=== PATIENT | female | born 1985 | race Caucasian/White ===

== ENCOUNTER 2024-03-02 05:49 | Inpatient (IN) ==
[2024-03-02] MEDS: 0.9 % SODIUM CHLORIDE 1,000 ML IV ONE ×2 (06:17→15:47)
[2024-03-02] MEDS: ONDANSETRON 4 MG/2 ML VIAL IV ONE ×3 (06:17→14:45)
[2024-03-02] MEDS: fentaNYL 100 MCG/2 ML VIAL IV ONE (06:42)
[2024-03-02 06:50] LABS: HCG Titer, Quantitative 11.8 mIU/mL
[2024-03-02 07:17] LABS: ALT/SGPT 964 U/L (<40); AST/SGOT 686 U/L (<32); Albumin 4.3 gm/dL (3.2-5.2); Albumin/Globulin Ratio 1.3 (1.0-2.3); Alkaline Phosphatase 283 U/L (39-117); Bilirubin,Total 2.4 mg/dL (0.1-1.0); Blood Urea Nitrogen 9 mg/dL (6-20); Carbon Dioxide 21 mmol/L (22-30); Chloride 100 mmol/L (96-108); Globulin 3.4 gm/dL (2.2-3.7); Glomerular Filtration Rate 111; Glucose 106 mg/dL (70-105); Potassium 3.9 mmol/L (3.3-5.1); Sodium 137 mmol/L (133-145)
[2024-03-02 07:48] LABS: Basophils # (Auto) 0.06 K/mcL (0.00-0.30); Basophils % (Auto) 0.6 % (0.0-2.0); Eosinophils # (Auto) 0.41 K/mcL (0.00-0.70); Hematocrit 45.7 % (34.1-44.9); Hemoglobin 14.7 g/dL (11.2-15.7); Lymphocytes % (Auto) 21.5 % (15.5-49.0); Mean Cell Volume 76.2 fL (80.0-100.0); Mean Corpuscular HGB Conc 32.2 g/dL (31.0-36.0); Monocytes # (Auto) 1.09 K/mcL (0.10-0.90); Monocytes % (Auto) 10.6 % (1.0-12.0); Neutrophils % (Auto) 62.9 % (38.0-78.0); Platelet Count 330 K/mcL (140-440); WBC 10.2 K/mcL (4.5-11.0)
[2024-03-02] MEDS: HYDROmorphone 0.5 MG/0.5 ML SYRINGE IV ONE ×3 (09:01→14:45)
[2024-03-02 12:10] LABS: Appearance,Urine Clear (Clear); Bilirubin,Urine Large mg/dL (Negative); Color,Urine Amber; Glucose,Urine (UA) Negative (Negative); Ketones,Urine 40 mg/dL (Negative); Leukocyte Esterase,Urine Negative /uL (Negative); Nitrate,Urine Negative (Negative); PH,Urine 5.5 (5.0-9.0); Protein,Urine 30 mg/dL (Negative); Specific Gravity,Urine >= 1.030 (1.000-1.035); Urine Blood Large ery/mcL (Negative); Urine RBC 0 /hpf (0-3); Urine Squamous Epithelial Cell 12 /hpf (0-4); Urine WBC 2 /hpf (0-4); Urobilinogen,Urine Normal
[2024-03-02] MEDS: HYDROmorphone 1 MG/ML SYRINGE IV PRN (16:47)
[2024-03-02] MEDS ORDERED: POTASSIUM CHLORIDE 40 MEQ in DEXTROSE 5% IN WATER 500 ML IV PRN (19:22)
[2024-03-02] MEDS ORDERED: ACETAMINOPHEN 325 MG TABLET PO PRN (19:22)
[2024-03-02] MEDS ORDERED: POTASSIUM CHLORIDE 20 MEQ TABLET PO PRN ×2 (19:22)
[2024-03-02] MEDS ORDERED: MAGNESIUM SULFATE 2 GM/50 ML BAG IV PRN (19:22)
[2024-03-02] MEDS ORDERED: IPRATROPIUM/ALBUTEROL 3 ML AMPUL.NEB NEB PRN (19:22)
[2024-03-02] MEDS: HYDROmorphone 0.5 MG/0.5 ML SYRINGE IV PRN (19:39)
[2024-03-02] MEDS: 0.9 % SODIUM CHLORIDE 1,000 ML IV SCH (19:40)
[2024-03-02] MEDS: ONDANSETRON 4 MG/2 ML VIAL IV PRN (19:40)
[2024-03-02] MEDS: DOCUSATE SODIUM 100 MG CAPSULE PO SCH (19:44)
[2024-03-02] MEDS: 0.9 % SODIUM CHLORIDE 10 ML SYRINGE IV SCH (19:44)
[2024-03-03] MEDS: METOCLOPRAMIDE 10 MG/2 ML VIAL IV PRN (06:00)
[2024-03-03 06:24] LABS: ALT/SGPT 563 U/L (<40); AST/SGOT 247 U/L (<32); Albumin 3.5 gm/dL (3.2-5.2); Albumin/Globulin Ratio 1.3 (1.0-2.3); Alkaline Phosphatase 220 U/L (39-117); Bilirubin,Direct 0.6 mg/dL (<0.3); Bilirubin,Total 0.8 mg/dL (0.1-1.0); Blood Urea Nitrogen 9 mg/dL (6-20); Calcium 7.8 mg/dL (8.6-10.4); Carbon Dioxide 22 mmol/L (22-30); Chloride 103 mmol/L (96-108); Globulin 2.6 gm/dL (2.2-3.7); Glomerular Filtration Rate 124; Glucose 96 mg/dL (70-105); Lactate Dehydrogenase 154 U/L (135-225); Phosphorous 3.1 mg/dL (2.5-4.5); Potassium 3.7 mmol/L (3.3-5.1); Sodium 136 mmol/L (133-145); Triglycerides 68 mg/dL (<150); Uric Acid 5.9 mg/dL (2.5-8.0)
[2024-03-03] MEDS: OMEPRAZOLE 20 MG CAPSULE PO SCH (07:42)
[2024-03-03] MEDS: ENOXAPARIN 40 MG/0.4 ML SYRINGE SQ SCH (09:46)
[2024-03-03] MEDS: diphenhydrAMINE 50 MG/ML VIAL IV PRN (11:07)
[2024-03-03] MEDS: PROCHLORPERAZINE 10 MG/2 ML VIAL IV PRN (16:37)
[2024-03-03] MEDS: oxyCODONE/APAP 5/325MG TABLET PO PRN (18:49)
[2024-03-03] MEDS: SENNOSIDES 1 TABLET PO PRN (20:32)
[2024-03-04 06:43] LABS: ALT/SGPT 342 U/L (<40); AST/SGOT 93 U/L (<32); Albumin 3.4 gm/dL (3.2-5.2); Albumin/Globulin Ratio 1.3 (1.0-2.3); Alkaline Phosphatase 179 U/L (39-117); Bilirubin,Direct 0.4 mg/dL (<0.3); Bilirubin,Total 0.7 mg/dL (0.1-1.0); Blood Urea Nitrogen 4 mg/dL (6-20); Calcium 7.9 mg/dL (8.6-10.4); Carbon Dioxide 24 mmol/L (22-30); Chloride 102 mmol/L (96-108); Globulin 2.7 gm/dL (2.2-3.7); Glomerular Filtration Rate 124; Glucose 126 mg/dL (70-105); Lactate Dehydrogenase 160 U/L (135-225); Phosphorous 1.2 mg/dL (2.5-4.5); Potassium 3.1 mmol/L (3.3-5.1); Sodium 137 mmol/L (133-145); Triglycerides 86 mg/dL (<150); Uric Acid 4.9 mg/dL (2.5-8.0)
[2024-03-04] MEDS: POLYETHYLENE GLYCOL 3350 17 GM PACKET PO PRN (08:02)
[2024-03-04] MEDS: POTASSIUM CHLORIDE 20 MEQ PACKET PO ONE (09:11)
[2024-03-04 15:43] LABS: Basophils # (Auto) 0.04 K/mcL (0.00-0.30); Basophils % (Auto) 0.2 % (0.0-2.0); Eosinophils # (Auto) 0.61 K/mcL (0.00-0.70); Eosinophils % (Auto) 3.7 % (0.0-7.0); Hemoglobin 12.5 g/dL (11.2-15.7); Lymphocytes # (Auto) 2.24 K/mcL (1.50-4.80); Lymphocytes % (Auto) 13.7 % (15.5-49.0); Mean Cell Volume 79.8 fL (80.0-100.0); Mean Corpuscular HGB Conc 31.3 g/dL (31.0-36.0); Mean Platelet Volume 9.1 fL (8.8-12.5); Monocytes # (Auto) 1.31 K/mcL (0.10-0.90); Neutrophils % (Auto) 73.8 % (38.0-78.0); Platelet Count 263 K/mcL (140-440); RBC 5.01 M/mcL (3.59-5.38); Red Cell Distribution Width 14.4 % (11.5-14.5); WBC 16.3 K/mcL (4.5-11.0)
[2024-03-04] MEDS: POTASSIUM PHOSPHATE 40 MEQ in DEXTROSE 5% IN WATER 500 ML IV ONE (16:05)
[2024-03-04 16:20] LABS: Blood Urea Nitrogen 4 mg/dL (6-20); Calcium 8.3 mg/dL (8.6-10.4); Carbon Dioxide 25 mmol/L (22-30); Chloride 102 mmol/L (96-108); Glomerular Filtration Rate 117; Glucose 93 mg/dL (70-105); Potassium 3.6 mmol/L (3.3-5.1); Sodium 138 mmol/L (133-145)
[2024-03-05 06:17] LABS: Basophils # (Auto) 0.04 K/mcL (0.00-0.30); Basophils % (Auto) 0.2 % (0.0-2.0); Eosinophils # (Auto) 0.76 K/mcL (0.00-0.70); Eosinophils % (Auto) 4.4 % (0.0-7.0); Hematocrit 38.3 % (34.1-44.9); Hemoglobin 12.1 g/dL (11.2-15.7); Lymphocytes # (Auto) 2.15 K/mcL (1.50-4.80); Lymphocytes % (Auto) 12.5 % (15.5-49.0); Mean Cell Volume 79.1 fL (80.0-100.0); Mean Corpuscular HGB Conc 31.6 g/dL (31.0-36.0); Mean Platelet Volume 9.3 fL (8.8-12.5); Monocytes # (Auto) 1.24 K/mcL (0.10-0.90); Monocytes % (Auto) 7.2 % (1.0-12.0); Neutrophils % (Auto) 75.4 % (38.0-78.0); Platelet Count 282 K/mcL (140-440); RBC 4.84 M/mcL (3.59-5.38); Red Cell Distribution Width 14.4 % (11.5-14.5); WBC 17.3 K/mcL (4.5-11.0)
[2024-03-05 06:25] LABS: ALT/SGPT 271 U/L (<40); AST/SGOT 55 U/L (<32); Albumin 3.5 gm/dL (3.2-5.2); Albumin/Globulin Ratio 1.2 (1.0-2.3); Alkaline Phosphatase 163 U/L (39-117); Bilirubin,Direct 0.4 mg/dL (<0.3); Bilirubin,Total 0.6 mg/dL (0.1-1.0); Blood Urea Nitrogen 3 mg/dL (6-20); Calcium 8.3 mg/dL (8.6-10.4); Carbon Dioxide 25 mmol/L (22-30); Chloride 102 mmol/L (96-108); Glomerular Filtration Rate 124; Glucose 105 mg/dL (70-105); Lactate Dehydrogenase 271 U/L (135-225); Phosphorous 2.3 mg/dL (2.5-4.5); Potassium 3.8 mmol/L (3.3-5.1); Sodium 137 mmol/L (133-145); Triglycerides 94 mg/dL (<150); Uric Acid 4.1 mg/dL (2.5-8.0)
[2024-03-05] MEDS: PIPERACILLIN SODIUM/TAZOBACTAM 3.375 GM in DEXTROSE 5% IN WATER 50 ML IV ONE (17:48)
[2024-03-05] MEDS: PIPERACILLIN SODIUM/TAZOBACTAM 3.375 GM in DEXTROSE 5% IN WATER 100 ML IV SCH (22:01)
[2024-03-06 06:17] LABS: Basophils # (Auto) 0.07 K/mcL (0.00-0.30); Basophils % (Auto) 0.4 % (0.0-2.0); Eosinophils # (Auto) 0.81 K/mcL (0.00-0.70); Eosinophils % (Auto) 4.8 % (0.0-7.0); Hematocrit 36.4 % (34.1-44.9); Hemoglobin 11.7 g/dL (11.2-15.7); Lymphocytes # (Auto) 1.99 K/mcL (1.50-4.80); Lymphocytes % (Auto) 11.7 % (15.5-49.0); Mean Cell Volume 78.4 fL (80.0-100.0); Mean Corpuscular HGB Conc 32.1 g/dL (31.0-36.0); Mean Platelet Volume 9.3 fL (8.8-12.5); Monocytes # (Auto) 1.47 K/mcL (0.10-0.90); Monocytes % (Auto) 8.6 % (1.0-12.0); Platelet Count 304 K/mcL (140-440); RBC 4.64 M/mcL (3.59-5.38); Red Cell Distribution Width 14.5 % (11.5-14.5)
[2024-03-06 06:45] LABS: ALT/SGPT 187 U/L (<40); AST/SGOT 27 U/L (<32); Albumin 3.4 gm/dL (3.2-5.2); Albumin/Globulin Ratio 1.1 (1.0-2.3); Alkaline Phosphatase 142 U/L (39-117); Bilirubin,Direct 0.4 mg/dL (<0.3); Bilirubin,Total 0.6 mg/dL (0.1-1.0); Blood Urea Nitrogen 4 mg/dL (6-20); Calcium 8.6 mg/dL (8.6-10.4); Carbon Dioxide 24 mmol/L (22-30); Chloride 103 mmol/L (96-108); Glomerular Filtration Rate 124; Glucose 109 mg/dL (70-105); Lactate Dehydrogenase 155 U/L (135-225); Phosphorous 2.7 mg/dL (2.5-4.5); Potassium 3.6 mmol/L (3.3-5.1); Sodium 138 mmol/L (133-145); Triglycerides 71 mg/dL (<150); Uric Acid 2.7 mg/dL (2.5-8.0)
[2024-03-06] MEDS ORDERED: SUGAMMADEX SODIUM 200 MG/2 ML VIAL IV ONE ×2 (13:24→15:22)
[2024-03-06] MEDS ORDERED: fentaNYL 100 MCG/2 ML VIAL ONE ×3 (13:24→15:23)
[2024-03-06] MEDS ORDERED: PROPOFOL 200 MG/20 ML VIAL IV ONE ×2 (13:24→14:13)
[2024-03-06] MEDS ORDERED: KETAMINE 50 MG/ML ML ONE ×2 (13:25→14:13)
[2024-03-06] MEDS ORDERED: ROCURONIUM 10 MG/ML ML IV ONE ×2 (13:29→14:14)
[2024-03-06] MEDS ORDERED: GLYCOPYRROLATE 0.2 MG/ML VIAL IV ONE (13:29)
[2024-03-06] MEDS ORDERED: DEXAMETHASONE 10 MG/ML VIAL ONE ×2 (13:29→14:14)
[2024-03-06] MEDS ORDERED: ONDANSETRON 4 MG/2 ML VIAL ONE ×2 (13:29→14:14)
[2024-03-06] MEDS ORDERED: LIDOCAINE 2% PF 5 ML VIAL ONE ×3 (13:29→14:14)
[2024-03-06] MEDS ORDERED: MAGNESIUM SULFATE 2 GM/50 ML BAG IV ONE (14:15)
[2024-03-06] MEDS ORDERED: NALOXONE HCL 0.4 MG/ML VIAL IV PRN (15:14)
[2024-03-06] MEDS ORDERED: MEPERIDINE 25 MG/ML VIAL IV PRN (15:14)
[2024-03-06] MEDS ORDERED: LACTATED RINGERS 250 ML IV PRN (15:14)
[2024-03-06] MEDS ORDERED: IPRATROPIUM/ALBUTEROL 3 ML AMPUL.NEB NEB PRN (15:14)
[2024-03-06] MEDS ORDERED: diphenhydrAMINE 50 MG/ML VIAL IV PRN (15:14)
[2024-03-06] MEDS: ACETAMINOPHEN 1,000 MG/100 ML BAG IV ONE (15:44)
[2024-03-06] MEDS: fentaNYL 100 MCG/2 ML VIAL IV PRN (15:53)
[2024-03-06] MEDS: KETOROLAC 30 MG/ML VIAL IV PRN (15:54)
[2024-03-06] MEDS: METHOCARBAMOL 1,000 MG/10 ML VIAL IV PRN (15:55)
[2024-03-06] MEDS: ONDANSETRON 4 MG/2 ML VIAL IV PRN (16:13)
[2024-03-06] MEDS: HYDROmorphone 0.5 MG/0.5 ML SYRINGE IV PRN (16:18)
[2024-03-06] MEDS: PIPERACILLIN SODIUM/TAZOBACTAM 4.5 GM in DEXTROSE 5% IN WATER 100 ML IV SCH (16:42)
[2024-03-06] MEDS: LACTATED RINGERS 1,000 ML IV SCH (16:47)
[2024-03-07 07:10] LABS: ALT/SGPT 163 U/L (<40); AST/SGOT 41 U/L (<32); Albumin 3.6 gm/dL (3.2-5.2); Albumin/Globulin Ratio 1.1 (1.0-2.3); Alkaline Phosphatase 170 U/L (39-117); Bilirubin,Direct 0.3 mg/dL (<0.3); Bilirubin,Total 0.5 mg/dL (0.1-1.0); Blood Urea Nitrogen 6 mg/dL (6-20); Carbon Dioxide 24 mmol/L (22-30); Chloride 100 mmol/L (96-108); Globulin 3.4 gm/dL (2.2-3.7); Glomerular Filtration Rate 134; Glucose 134 mg/dL (70-105); Lactate Dehydrogenase 189 U/L (135-225); Phosphorous 3.2 mg/dL (2.5-4.5); Potassium 4.2 mmol/L (3.3-5.1); Sodium 135 mmol/L (133-145); Triglycerides 81 mg/dL (<150); Uric Acid 2.2 mg/dL (2.5-8.0)
[2024-03-07 07:42] LABS: Basophils # (Auto) 0.01 K/mcL (0.00-0.30); Basophils % (Auto) 0.1 % (0.0-2.0); Eosinophils # (Auto) 0.01 K/mcL (0.00-0.70); Eosinophils % (Auto) 0.1 % (0.0-7.0); Hematocrit 36.7 % (34.1-44.9); Hemoglobin 11.7 g/dL (11.2-15.7); Lymphocytes # (Auto) 1.15 K/mcL (1.50-4.80); Lymphocytes % (Auto) 7.6 % (15.5-49.0); Mean Cell Volume 78.6 fL (80.0-100.0); Mean Corpuscular HGB Conc 31.9 g/dL (31.0-36.0); Mean Platelet Volume 9.4 fL (8.8-12.5); Monocytes # (Auto) 0.72 K/mcL (0.10-0.90); Monocytes % (Auto) 4.8 % (1.0-12.0); Platelet Count 374 K/mcL (140-440); RBC 4.67 M/mcL (3.59-5.38); Red Cell Distribution Width 14.4 % (11.5-14.5); WBC 15.1 K/mcL (4.5-11.0)
[2024-03-07 10:17] VITALS: O2SAT 95
[2024-03-07 14:07] VITALS: TEMP 97
== END 2024-03-07 15:19 | disposition home or self-care (01) | DRG 418 ==
LOC: ED 05:49 → MEDSUR 18:58
PROVIDERS: ADMIT Internal Medicine; ATTEND Student in an Organized Health Care Education/Training Program